=== PATIENT | female | born 1945 | race Caucasian/White ===

== ENCOUNTER 2018-05-01 11:29 | Day surgery (SDC) | payer MEDICARE, OTHER ==
--- NOTE | ~2018-05-01 | OP ---
PATIENT NAME: YONATAN SAGASTUME MEDICAL RECORD: [id number] :43 LOCATION:[facility] ADMISSION DATE: SURGEON: TRACEE ROSA MD DATE OF OPERATION: 05/01/2018 PROCEDURE: EGD with balloon dilatation, EGD with biopsy. COUNCILPERSON: Tracee Rosa MD SCOPE: An Olympus video colonoscope. MEDICATIONS: Per TIVA anesthesia. The patient received 200 mg of propofol for this procedure, O2 at 4 liters. INDICATION FOR THE PROCEDURE: Gastroesophageal reflux disease as well as dysphagia. FINDINGS: Informed consent was given. The patient was made comfortable with the above medications. After reaching an adequate level of sedation by slow IV push, the patient was placed on her left side. The endoscope was then advanced under direct visualization through the posterior pharyngeal area and advanced to the distal esophagus. At this area, some mild distal esophageal ulcers were appreciated without visible vessels, not actively bleeding. We also noted the presence of a distal esophageal Schatzki ring. We then placed a CRE Microvasive balloon in this area and dilated the area to 52-Maldivian, held it in place for 1 minute without complication. A hiatal hernia was noted both on direct and retroflex views. On entering the stomach, only mild inflammation was seen throughout the gastric mucosa. No ulcers or erosions were appreciated. Helicobacter pylori biopsy was taken at the distal antral area. The duodenal bulb to the second portion had [id number] inflammation. Biopsies were obtained. No ulcers or erosions were appreciated. The scope was then withdrawn. IMPRESSION: 1. Distal esophageal ulcerations and no visible vessels, not actively bleeding. 2. Schatzki ring dilated to 52-Maldivian. 3. Small hiatal hernia. 4. Mild gastritis. Helicobacter ANNE histopathology biopsy taken at the pylorus. 5. Mild duodenitis, biopsy taken in the second portion of the duodenum. PLAN: 1. The patient to follow reflux precautions stringently, both dietary and positional. 2. EGD in 8 weeks to document healing of the esophageal ulcers and we will redilate the distal esophagus at that time. 3. No anti-inflammatory drugs, tobacco, or alcohol. 4. The patient should continue her omeprazole 20 mg p.o. daily, and we will increase the famotidine to 40 mg p.o. at bedtime. TRANSINT:[id number] Voice Confirmation ID: [id number] DOCUMENT ID: [id number] OPERATIVE REPORT [id number] YONATAN SAGASTUME BRENDA MD at 1304 CC: [id number] DICTATION DATE: 05/01/18 140 LIQUEFACTION AND REGASIFICATION HELPER: 05/01/18 1414 [facility] 05/01/18 [place] [id number] [place] [id number]
[2018-05-01 11:52] LABS: HEMATOCRIT 39.7 % (36.0-48.0); HEMOGLOBIN 13.4 g/dL (12-16); MCH 29.8 pg (26.0-34.0); MCHC 33.8 g/dL (31.0-37.0); MCV 88.2 fL (80.0-100.0); MEAN PLATELET VOLUME 9.8 fL (7.4-10.4); RBC 4.5 10x6/uL (4.00-5.40); RDW 14.1 % (11.5-14.5); WBC 7.3 10x3/uL (4.8-10.8)
== END 2018-05-01 17:00 | disposition home or self-care (01) ==
LOC: D.OPS 11:29
PROVIDERS: Anesthesiology
DX: R13.10 Dysphagia, unspecified (principal); K21.9 Gastro-esophageal reflux disease without esophagitis

== ENCOUNTER 2018-10-16 10:03 | Day surgery (SDC) | payer MEDICARE, OTHER ==
[~2018-10-16] VITALS: Ht 162.6 cm; Wt 75.0 kg
--- NOTE | ~2018-10-16 | OP ---
PATIENT NAME: YONATAN SAGASTUME MEDICAL RECORD: [id number] :44 LOCATION:[facility] ADMISSION DATE: SURGEON: TRACEE ROSA MD DATE OF OPERATION: 10/16/2018 PROCEDURE: EGD with biopsy. WASH WORKER: Tracee Rosa MD SCOPE: Olympus video gastroscope. MEDICATIONS: Per TIVA anesthesia. The patient received 140 mg of propofol IV push, O2 of 4 liters. INDICATION FOR THE PROCEDURE: 1. Dysphagia. 2. History of distal esophageal ulcerations. FINDINGS AND DESCRIPTION OF PROCEDURE: Informed consent was given. The patient was made comfortable with the above medications. After reaching an adequate level of sedation by slow IV push, the patient was placed on her left side. The endoscope was then advanced under direct visualization through the posterior pharyngeal area and advanced to the distal esophagus. The previously documented distal esophageal ulcerations were seen to have healed. The patient had a Schatzki's ring, which we dilated with her, 05/01/2018 procedure, to 52-Chadian. The patient was again expressing some dysphagia and after the inspection part of the EGD was completed, a CRE microvasive balloon was placed in the distal esophageal area and inflated to 60-Chadian without complication. The balloon was then deflated and removed. The patient was noted to have a very small hiatal hernia seen both on direct and retroflex views. On entering the stomach, only minimal inflammation was appreciated. Biopsies were taken with her last procedure and were not felt necessary at this time. The duodenal bulb to the second portion again had minimal inflammation present with some improvement noted. Biopsies were not taken as these were done with the last procedure and all biopsies were noted to be negative. The scope was then withdrawn. IMPRESSION: 1. Distal esophageal ulcers, which were previously seen at the 05/01/2018 EGD were seen to have healed. 2. Mild distal esophagitis, biopsied. 3. Distal esophageal ring, which was dilated earlier to 52-Chadian. We completed this dilatation today to 60-Chadian with no complication noted. 4. A small hiatal hernia. 5. Mild gastritis. 6. Mild duodenitis. PLAN: 1. The patient should continue to follow reflux precautions stringently, both dietary and positional. 2. Caution with the anti-inflammatory drugs, tobacco and alcohol. 3. The patient can stop her omeprazole at this time and should take famotidine at a dose of 20 mg p.o. b.i.d. Return to clinic on a p.r.n. basis. OPERATIVE REPORT [id number] JOSUEYONATAN GREENE Jo Ann TRANSINT:[id number] Voice Confirmation ID: [id number] DOCUMENT ID: [id number] TRACEE ROSA MD CC: MEHRAN KEARNEY MD [id number] DICTATION DATE: 10/16/18 1225 LITHOPONE CHARGER: 10/16/18 1301 [facility] [address] [place] [id number]
[2018-10-16 10:18] LABS: HEMATOCRIT 41.1 % (36.0-48.0); HEMOGLOBIN 13.7 g/dL (12-16); MCHC 33.3 g/dL (31.0-37.0); MCV 87.1 fL (80.0-100.0); MEAN PLATELET VOLUME 9.9 fL (7.4-10.4); RBC 4.72 10x6/uL (4.00-5.40); RDW 15.1 % (11.5-14.5); WBC 6.2 10x3/uL (4.8-10.8)
[2018-10-16] MEDS ORDERED: PEPCID40 MG PO (10:57)
[2018-10-16] MEDS ORDERED: OMEPRAZOLE20 M1 PO (10:57)
[2018-10-16] MEDS ORDERED: BREO ELLIPTA 11 EACH INH (10:58)
[2018-10-16] MEDS ORDERED: ALBUTEROL0.63 MG/3 INH (10:58)
[2018-10-16] MEDS ORDERED: VITAMIN D31000 UNI2 PO (10:59)
[2018-10-16] MEDS ORDERED: CLARITIN 10 MG10 MG PO (10:59)
[2018-10-16] MEDS ORDERED: MULTI-DAY VITAM1 TAB PO (10:59)
[2018-10-16] MEDS ORDERED: GLUCOSAMINE HC500 MG PO (11:00)
[2018-10-16] MEDS ORDERED: BAYER CHEWABLE81 MG PO (11:00)
[2018-10-16 11:15] VITALS: BP 107/71; Ht 162.6 cm; Wt 75.0 kg
--- NOTE | 2018-10-16 12:23 | NUR ---
1218-DILATE ESOPHAGUS WITH 18-20 CRE BALLOON, DILATE TO 60 SYRIAN TIMES ONE MINUTE.
== END 2018-10-16 13:30 | disposition home or self-care (01) ==
LOC: D.OPS 10:03
PROVIDERS: Anesthesiology; ATTEND Internal Medicine Gastroenterology
DX: K20.9 Esophagitis, unspecified (principal); K22.2 Esophageal obstruction; K44.9 Diaphragmatic hernia without obstruction or gangrene; K29.70 Gastritis, unspecified, without bleeding; K29.80 Duodenitis without bleeding; Z01.812 Encounter for preprocedural laboratory examination